=== PATIENT | female | born 1980 | race Caucasian/White ===

== ENCOUNTER → 2017-02-02 | Outpatient (CLI) | payer BC ==
--- NOTE | 2017-02-02 11:17 | MR ---
EXAMINATION TYPE: MR brain and iac wo/w con DATE OF EXAM: 02/02/2017 10:00 AM COMPARISON: NONE HISTORY: Hearing loss TECHNIQUE: Multiplanar and multispin-echo imaging of the brain was performed both before and after the administr ation of contrast. High-resolution images are obtained of the internal auditory canals performed uti lizing 15 mL intravenous MultiHance contrast. The ventricles, basal cisterns and sulci overlying the cerebral convexities are within normal limits. There is no evidence for midline shift or mass effect. Acute intracranial hemorrhage or extra-axial collection is not evident. There are no abnormal areas of increased or decreased signal intensity within the brain parenchyma. High-resolution imaging of the internal auditory canals fails demonstrate evidence for an enhancing a coustic schwannoma or cerebellopontine cistern angle mass. In the region of the left petrous apex there is a mass measuring 1.2 x 1.4 cm which is of increased s ignal on T1-weighted imaging and also increased signal on T2-weighted images. The lesion may demonstr ate minimal enhancement. Findings may reflect cholesterol granuloma or cholesteatoma of the left rica ous apex. Petrous apicitis is considered less likely. Consider dedicated temporal bone CT for further evaluation. IMPRESSION: 1. No evidence of acoustic schwannoma or cerebellopontine angle mass. 2. Left petrous apex lesion as discussed above.
== END | disposition home or self-care (01) ==
LOC: RADMRIMAIN 08:35
PROVIDERS: ATTEND Otolaryngology
DX: R93.0 Abnormal findings on diagnostic imaging of skull and head, not elsewhere classified (principal); D33.3 Benign neoplasm of cranial nerves
CPT/HCPCS: 70553; A9577

== ENCOUNTER → 2017-02-02 | Outpatient (CLI) | payer BC ==
[2017-02-02 08:50] LABS: Basophils % (A) 0 %; CH 29.9; CHCM 31.7; Eosinophils # (A) 0.1 k/uL (0-0.7); Eosinophils % (A) 2 %; HCT 45.7 % (34.0-46.0); HDW 2.47; HGB 14.5 gm/dL (11.4-16.0); Luc # (Auto) 0.15; Luc % (Auto) 3; Lymphocytes # (A) 1.3 k/uL (1.0-4.8); Lymphocytes % (A) 21 %; MCH 30.1 pg (25.0-35.0); MCHC 31.8 g/dL (31.0-37.0); MCV 94.9 fL (80.0-100.0); Mean Platelet Volume 7.8; Monocytes # (A) 0.4 k/uL (0-1.0); Monocytes % (A) 7 %; Neutrophils # (A) 4.2 k/uL (1.3-7.7); Neutrophils % (A) 68 %; RBC 4.82 m/uL (3.80-5.40); RDW 13.3 % (11.5-15.5); WBC 6.2 k/uL (3.8-10.6); WBC (Perox) 6.05
[2017-02-02 09:07] LABS: ALT 22 U/L (9-52); AST 20 U/L (14-36); Alkaline Phosphatase 39 U/L (38-126); Anion Gap 12 mmol/L; Blood Urea Nitrogen 18 mg/dL (7-17); Calcium 9.3 mg/dL (8.4-10.2); Carbon Dioxide 20 mmol/L (22-30); Chloride 110 mmol/L (98-107); Cholesterol 172 mg/dL (<200); Glucose 89 mg/dL (74-99); HDL Cholesterol 57 mg/dL (40-60); Non-African American GFR(MDRD) >60 (>60 ml/min/1.73 sqM); Potassium 3.8 mmol/L (3.5-5.1); Sodium 142 mmol/L (137-145); Total Bilirubin 0.9 mg/dL (0.2-1.3); Total Protein 7.9 g/dL (6.3-8.2); Triglycerides 63 mg/dL (<150)
== END | disposition home or self-care (01) ==
LOC: LABWHC1 08:20
PROVIDERS: ATTEND Internal Medicine
DX: Z00.00 Encounter for general adult medical examination without abnormal findings (principal)
CPT/HCPCS: 36415; 80053; 80061; 85025

== ENCOUNTER → 2017-02-10 | Outpatient (CLI) | payer BC ==
--- NOTE | 2017-02-10 13:45 | CT ---
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 Coron al reconstructions performed. CT DLP: 142.70 mGycm Automated exposure control for dose reduction was used. FINDINGS: There is no abnormality of the visualized intracranial structures allowing for thin slice CT techniqu e. There is asymmetric pneumatization of the right petrous apex. On the left, there is an elongated, hyp odense lesion marginated by peripheral thin sclerosis measuring up to 1.7 cm long by 0.7 cm, refer to coronal image 82 and axial image 57. The air cells present in the left petrous apex are also corresp ondingly opacified. There is no aggressive destruction of the petrous apex or expansion The external auditory canals are patent. The middle ear cavities and mastoid air cells are well pneumatized. There is no abnormality of middle ear ossicles. The round and oval windows are normal. There is no abnormality of bony labyrinths. The vestibular aqueduct are well visualized. The facial nerve canal is normal bilaterally. The internal auditory canal and meati are symmetrical bilaterally. Paranasal sinuses are clear. Reformatted images confirm above findings. IMPRESSION: ASYMMETRIC OPACIFICATION IN THE REGION OF THE LEFT PETROUS APEX WITH A 1.7 CM LESION MARGINATED BY TH IN PERIPHERAL SCLEROSIS. THERE IS NO AGGRESSIVE OSSEOUS DESTRUCTION OR BONY EXPANSION. 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 SUKHJINDER STEATOMA GENERALLY DOES NOT HAVE T1 HYPERINTENSITY AND THE THIN PERIPHERAL SCLEROSIS MAKES PETROUS AP ICITIS LESS LIKELY. CLINICAL CORRELATION RECOMMENDED.
== END | disposition home or self-care (01) ==
LOC: RADCTMAIN 12:59
PROVIDERS: ATTEND Otolaryngology
DX: D16.4 Benign neoplasm of bones of skull and face (principal)
CPT/HCPCS: 70480

== ENCOUNTER 2017-12-21 14:22 | Emergency (ER) | payer OTHER, BC ==
[2017-12-21 14:27] VITALS: RESP 16
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
[2017-12-21] MEDS ORDERED: CYCLOBENZAPRINE 10MG STARTER 3 TAB BTL PO STA (15:43)
[2017-12-21] MEDS ORDERED: IBUPROFEN 600 MG STARTER PACK 4 TAB BTL PO STA (15:43)
[2017-12-21 15:53] VITALS: BP 113/70; PULSE 75; TEMP 97.2
== END 2017-12-21 15:52 | disposition home or self-care (01) ==
LOC: EC 14:22
DX: S06.0X0A Concussion without loss of consciousness, initial encounter (principal); V49.50XA Passenger injured in collision with unspecified motor vehicles in traffic accident, initial encounter; Y92.410 Unspecified street and highway as the place of occurrence of the external cause
CPT/HCPCS: 70450; 99284

== ENCOUNTER → 2018-01-13 | Outpatient (CLI) | payer BC, OTHER ==
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
== END | disposition home or self-care (01) ==
LOC: RADMRIMAIN 11:52
PROVIDERS: ATTEND Internal Medicine
DX: M50.21 Other cervical disc displacement, high cervical region (principal); G93.9 Disorder of brain, unspecified
CPT/HCPCS: 70551; 72141